=== PATIENT | female | born 1985 | race Caucasian/White ===

== ENCOUNTER 2018-06-21 17:17 | Emergency (ER) | payer MEDICAID, OTHER ==
[~2018-06-21] VITALS: Ht 167.6 cm; Wt 104.3 kg
[2018-06-21 17:20] VITALS: BP_SYST 131
[2018-06-21] MEDS ORDERED: ACETAMINOPHEN 500 MG TABLET PO ONE (18:30)
[2018-06-21 18:32] VITALS: BP_SYST 131
[2018-06-21] MEDS ORDERED: BACITRACIN 1 GM OINT TP ONE (18:36)
== END 2018-06-21 18:32 | disposition home or self-care (01) ==
LOC: SED 17:17
DX: S40.862A Insect bite (nonvenomous) of left upper arm, initial encounter (principal); N93.8 Other specified abnormal uterine and vaginal bleeding; R03.0 Elevated blood-pressure reading, without diagnosis of hypertension; Z88.6 Allergy status to analgesic agent; W57.XXXA Bitten or stung by nonvenomous insect and other nonvenomous arthropods, initial encounter; Y93.89 Activity, other specified; Y92.89 Other specified places as the place of occurrence of the external cause; Y99.8 Other external cause status
CPT/HCPCS: 99283